=== PATIENT | female | born 1970 | race Caucasian/White ===

== ENCOUNTER → 2016-08-10 | Outpatient (CLI) | payer OTHER ==
--- NOTE | 2016-08-11 15:24 | MAM ---
EXAM DESCRIPTION: MAMMO BREAST SCREENING BILATERAL CAD, images were reviewed with CAD technology, R2 computer-aided detection. CLINICAL HISTORY: [facility]. COMPARISON: 2013. FINDINGS: Routine views are obtained. Glandular tissue is near completely fatty involuted. No dominant mass, architectural distortion or clustered microcalcification.. IMPRESSION: Benign exam. BIRAD CATEGORY: 2 BENIGN RECOMMENDATIONS: FOLLOW-UP: Routine screening mammogram in one year. According to the [employer], yearly mammograms are recommended starting at age 40 and continuing as long as a woman is in good health. Any breast change noted on a breast self-exam should be reported promptly to the patient's healthcare provider. Breast MRI is recommended for women with an approximately 20-25% or greater lifetime risk of breast cancer, including women with a strong family history of breast or ovarian cancer and women who have been treated for Hodgkin's disease. Electronically signed by: Cherelle Lehman 08/11/2016 15:23
== END ==
LOC: MAMMO 13:27
PROVIDERS: ATTEND Obstetrics & Gynecology
DX: Z12.31 Encounter for screening mammogram for malignant neoplasm of breast (principal)
CPT/HCPCS: 77052; G0202

== ENCOUNTER → 2017-07-01 | Outpatient (CLI) | payer OTHER | END | disposition home or self-care (01) | LOC: GMAB 10:37 | PROVIDERS: ATTEND Family Medicine | DX: E03.9 Hypothyroidism, unspecified (principal); E34.9 Endocrine disorder, unspecified; Z79.890 Hormone replacement therapy ==

== ENCOUNTER 2017-09-18 11:18 | Emergency (ER) | payer OTHER ==
[2017-09-18 11:28] VITALS: TEMP 98.3
--- NOTE | 2017-09-18 12:18 | RAD ---
Procedure: XR CHEST 2 VIEWS Exam Date: 09/18/2017 11:40 AM STATE EPIDEMIOLOGIST Ordering Provider: Rudolph Pinto Clinical Indication: near syncope Comparison: None Findings: The lungs are clear and well-aerated. No pleural effusion or pneumothorax. Cardiac silhouette is normal in size. Impression: No acute pulmonary process. Electronically signed by: Aleksandra Ch MD 09/18/2017 12:17 PM STATE EPIDEMIOLOGIST
[2017-09-18] MEDS ORDERED: MECLIZINE HCL 12.5 MG TAB PO ONE (13:19)
[2017-09-18 13:29] VITALS: O2SAT 97
--- NOTE | 2017-09-18 13:44 | CT ---
Procedure: CT HEAD WITHOUT IV CONTRAST Exam Date: 09/18/2017 1:18 PM EXCELLENCE CONSULTANT Ordering Provider: Rudolph Pinto Clinical Indication: dizziness with lying back for 48 hours Comparison: None Technique: CT images of the head were obtained without contrast administration. Coronal and sagittal reformats were obtained. This exam was performed according to our departmental dose-optimization program which includes automated exposure control, adjustment of the mA and/or kV according to patient size and/or use of iterative reconstruction technique. Findings: There is no acute cortical infarction, hemorrhage, midline shift, mass effect, or hydrocephalus. The calvaria and skull base are unremarkable. Paranasal sinuses and mastoid air cells are well aerated. Impression: 1. No acute intracranial abnormality. Electronically signed by: Aleksandra Ch MD 09/18/2017 1:43 PM EXCELLENCE CONSULTANT
[2017-09-18 13:58] VITALS: BP 135/79
--- NOTE | 2017-09-18 14:12 | ED.PDOC ---
History of Present Illness - General Chief Complaint: Neuro Symptoms/Deficits Stated Complaint: Dizziness, blurred vision Time Seen by Provider: 09/18/17 11:39 Source: patient Exam Limitations: no limitations - History of Present Illness Initial Comments: the patient is a 46-year-old female presenting to the emergency room secondary to symptoms of dizziness and vertigo that had been intermittent, waxing and waning for the last 24-48 hours. She does have a complicating history of bilateral thoracic outlet syndrome. No history of any strokes. No history of any clots. No exacerbation of her typicalsymptoms. She has not had any vertigo before. No history of any Mnire's or hearing loss or tinnitus. No fevers. No earache. No other neurological changes. 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 Exam today shows no unusual nystagmus. Dizziness is not made worse with looking left or right but is made much worse with lying back flat. there is no exacerbationor new nystagmus with this maneuver either. No headache. No change in blood pressure. The vital signs are negative for any significant change. Timing/Duration: 24 hours Severity: moderate Improving Factors: nothing Worsening Factors: movement Associated Symptoms: denies symptoms, nausea/vomiting Allergies/Adverse Reactions: Allergies Codeine Allergy (Verified 03/19/16 01:47) Hydrocodone Allergy (Verified 03/19/16 01:47) Latex Allergy (Verified 03/19/16 01:47) Meperidine [From Demerol HCl] Allergy (Verified 03/19/16 01:47) Morphine Allergy (Verified 03/19/16 01:47) Home Medications: Ambulatory Orders Ascorbic Acid [Vitamin C] 1,000 mg PO DAILY 09/26/15 Aspirin [Eql Aspirin Low Dose] 81 mg PO DAILY 09/26/15 Cholecalciferol [Vitamin D-3] 2,000 unit PO DAILY 09/26/15 Cyanocobalamin [Vitamin B 12] 250 mcg PO DAILY 09/26/15 Estradiol [Estrace Tab] 1 mg PO BEDTIME 09/26/15 Iodine (Kelp) [Kelp] 0.15 mg PO DAILY 09/26/15 Magnesium [Magnesium 250 mg] 1 tab PO DAILY 09/26/15 Thyroid [Thornton Thyroid] 30 mg PO BID 09/26/15 Vitamin E 100 unit PO DAILY 09/26/15 Lisinopril 10 mg PO DAILY 10/01/15 Carisoprodol [Soma] 350 mg PO Q6H PRN #30 tab 03/19/16 Meclizine HCl [Meclizine 25] 25 mg PO Q6H PRN #30 tab 09/18/17 predniSONE [Prednisone] 20 mg PO DAILY #5 tab 09/18/17 Review of Systems - Review of Systems Constitutional: States: malaise EENTM: States: no symptoms reported Respiratory: States: no symptoms reported Cardiology: States: no symptoms reported Gastrointestinal/Abdominal: States: no symptoms reported Genitourinary: States: no symptoms reported Musculoskeletal: States: no symptoms reported Skin: States: no symptoms reported Neurological: States: other - dizziness and vertigo Endocrine: States: no symptoms reported All other Systems: No Change from Baseline Past Medical History (General) - Patient Medical History Hx Seizures: No Hx Stroke: No Hx Dementia: No Hx Asthma: No Hx of COPD: No Hx Cardiac Disorders: No Hx Congestive Heart Failure: No Hx Pacemaker: No Hx Hypertension: Yes Hx Thyroid Disease: Yes Hx Diabetes: No Hx Gastroesophageal Reflux: No Hx Renal Disease: No Hx Cancer: No Hx of HIV: No Hx Hepatitis C: No Hx MRSA: No Surgical History: appendectomy, tonsillectomy, Hysterectomy, other - Vaccination History Hx Tetanus, Diphtheria Vaccination: No Hx Influenza Vaccination: No Hx Pneumococcal Vaccination: No - Social History Hx Tobacco Use: No Hx Chewing Tobacco Use: No Hx Alcohol Use: Yes - social Hx Substance Use: No Hx Substance Use Treatment: No Hx Depression: No Hx Physical Abuse: No Hx Emotional Abuse: No Hx Suspected Abuse: No - Female History Patient is a Female of Child Bearing Age (10 -59 yrs old): No - hysterectomy Patient : No Family Medical History - Family History Mother Family History: Unknown Living Status: Still Living Hx Cardiac Disease: Yes - [place] x 2 Physical Exam - Physical Exam General Appearance: Alert, Anxious, No apparent distress Eye Exam: right normal, left other - chronic decreased vision out of the left eye Ears, Nose, Throat: hearing grossly normal, normal ENT inspection, normal pharynx Neck: full range of motion, supple Respiratory: lungs clear, normal breath sounds, no respiratory distress, no accessory muscle use Cardiovascular/Chest: normal peripheral pulses, regular rate, rhythm, no edema Peripheral Pulses: radial,right: 2+, radial,left: 2+, dorsalis pedis,right: 2+, dorsalis pedis,left: 2+ Gastrointestinal/Abdominal: non tender, soft Rectal Exam: deferred Back Exam: no CVA tenderness, no vertebral tenderness Extremity: normal range of motion, non-tender, normal inspection, no pedal edema , normal capillary refill Neurologic: shield operator II-XII nml as tested, no motor/sensory deficits, alert, normal mood/affect, oriented x 3 Skin Exam: normal color Comments: Vital Signs - 24 hr 09/18/17 09/18/17 09/18/17 11:27 12:28 12:30 Temperature 98.3 F Pulse Rate [ 69 82 68 Left Radial] Respiratory 20 20 20 Rate Blood Pressure 165/92 163/97 172/64 [Left Arm] O2 Sat by Pulse 96 100 99 Oximetry 09/18/17 09/18/17 09/18/17 12:32 12:53 13:52 Temperature Pulse Rate [ 78 50 L 79 Left Radial] Respiratory 20 20 18 Rate Blood Pressure 167/102 160/96 135/79 [Left Arm] O2 Sat by Pulse 98 97 97 Oximetry Progress - Progress Progress: 09/18/17 14:13 The patient is a 46-year-old female presenting to the emergency room with new onset dizziness and vertigo. This appears to be a case of atypical subjective benign positional paroxysmal vertigo. At this point in time I cannot relate any of her symptoms to her thoracic outlet syndrome. No evidence of any thrombosis. D-dimer is negative. BNP is within normal limits. Physical exam shows no acute changes otherwise. The patient did respond to a particle repositioning maneuver starting with the patient lying back and looking to the left at first. She has been instructed on how to do this with the help of her if the problem recurs. The patient will be written for prednisone daily for 5 days at 20 mg. She will also be written for meclizine for when necessary use. She needs to keep herself well-hydrated. If symptoms are persisting or worsening over the next 3 or 4 days then her primary care doctor may need to refer her to an manager research development for further evaluation. eR warnings were given for any significant change in her symptoms. - Results/Orders Results/Orders: chest x-ray shows no acute abnormality. Head CT shows no significant pathology. EKG shows normal sinus rhythm at a rate of 64 bpm. Normal axis. No acute ST segment changes concerning for ischemia. Normal R-wave progression. Normal QT interval. 09/18/17 11:40 Telemetry .CONTINUOUS 09/18/17 11:45 EKG STAT EKG STAT 09/18/17 12:27 Vital Signs-Tilt PRN Laboratory Results - last 24 hr 09/18/17 09/18/17 09/18/17 11:58 11:58 11:58 WBC 7.5 RBC 5.36 Hgb 13.7 Hct 41.7 MCV 77.9 L MCH 25.5 L MCHC 32.7 L RDW 14.0 Plt Count 206 MPV 9.5 Absolute Neuts (auto) 5.10 Absolute Lymphs (auto) 1.70 Absolute Monos (auto) 0.40 Absolute Eos (auto) 0.10 Absolute Basos (auto) 0.10 Neutrophils % 68.1 Lymphocytes % 23.3 Monocytes % 5.8 Eosinophils % 1.9 Basophils % 0.9 D-Dimer, Quantitative 230 Sodium 138 Potassium 3.8 Chloride 106 Carbon Dioxide 25 Anion Gap 10.8 L BUN 14 Creatinine 0.64 BUN/Creatinine Ratio 21.9 H Random Glucose 90 Serum Osmolality 275.7 Calcium 9.1 Magnesium 1.8 Total Bilirubin 0.4 AST 14 ALT 17 Alkaline Phosphatase 72 Creatine Kinase 41 CK-MB (CK-2) 0.7 CK-MB (CK-2) % Not Reportable Troponin I < 0.02 B-Natriuretic Peptide 64.1 Serum Total Protein 6.8 Albumin 3.6 Globulin 3.2 Albumin/Globulin Ratio 1.1 TSH 1.60 Urine Color Urine Appearance Urine pH Ur Specific [place] Urine Protein Urine Glucose (UA) Urine Ketones Urine Blood Urine Nitrite Urine Bilirubin Urine Urobilinogen Ur Leukocyte Esterase Urine RBC Urine WBC Ur Epithelial Cells Urine Bacteria 09/18/17 11:59 WBC RBC Hgb Hct MCV MCH MCHC RDW Plt Count MPV Absolute Neuts (auto) Absolute Lymphs (auto) Absolute Monos (auto) Absolute Eos (auto) Absolute Basos (auto) Neutrophils % Lymphocytes % Monocytes % Eosinophils % Basophils % D-Dimer, Quantitative Sodium Potassium Chloride Carbon Dioxide Anion Gap BUN Creatinine BUN/Creatinine Ratio Random Glucose Serum Osmolality Calcium Magnesium Total Bilirubin AST ALT Alkaline Phosphatase Creatine Kinase CK-MB (CK-2) CK-MB (CK-2) % Troponin I B-Natriuretic Peptide Serum Total Protein Albumin Globulin Albumin/Globulin Ratio TSH Urine Color Yellow Urine Appearance Clear Urine pH 6.5 Ur Specific [place] 1.025 Urine Protein Negative Urine Glucose (UA) Negative Urine Ketones Negative Urine Blood Negative Urine Nitrite Negative Urine Bilirubin Negative Urine Urobilinogen 0.2 Ur Leukocyte Esterase Negative Urine RBC 0 Urine WBC 0 Ur Epithelial Cells 0 Urine Bacteria 0 Departure - Departure Clinical Impression: BPPV (benign paroxysmal positional vertigo) Qualifiers: Laterality: unspecified laterality Qualified Code(s): H81.10 - Benign paroxysmal vertigo, unspecified ear Disposition: Discharge to Home or Self Care Condition: Fair Departure Forms: ED Discharge - Pt. Copy, Patient Portal Self Enrollment Instructions: Benign Paroxysmal Positional Vertigo Diet: regular diet Activity: increase activity as tolerated Referrals: Jaylon Fan MD [Primary Care Provider] - 1-2 Weeks Prescriptions: Meclizine HCl [Meclizine 25] 25 mg PO Q6H PRN #30 tab PRN Reason: Dizziness predniSONE [Prednisone] 20 mg PO DAILY #5 tab Home Medications: Ambulatory Orders Ascorbic Acid [Vitamin C] 1,000 mg PO DAILY 09/26/15 Aspirin [Eql Aspirin Low Dose] 81 mg PO DAILY 09/26/15 Cholecalciferol [Vitamin D-3] 2,000 unit PO DAILY 09/26/15 Cyanocobalamin [Vitamin B 12] 250 mcg PO DAILY 09/26/15 Estradiol [Estrace Tab] 1 mg PO BEDTIME 09/26/15 Iodine (Kelp) [Kelp] 0.15 mg PO DAILY 09/26/15 Magnesium [Magnesium 250 mg] 1 tab PO DAILY 09/26/15 Thyroid [Thornton Thyroid] 30 mg PO BID 09/26/15 Vitamin E 100 unit PO DAILY 09/26/15 Lisinopril 10 mg PO DAILY 10/01/15 Carisoprodol [Soma] 350 mg PO Q6H PRN #30 tab 03/19/16 Meclizine HCl [Meclizine 25] 25 mg PO Q6H PRN #30 tab 09/18/17 predniSONE [Prednisone] 20 mg PO DAILY #5 tab 09/18/17 Additional Instructions: The patient is a 46-year-old female presenting to the emergency room with new onset dizziness and vertigo. This appears to be a case of atypical subjective benign positional paroxysmal vertigo. At this point in time I cannot relate any of her symptoms to her thoracic outlet syndrome. No evidence of any thrombosis. D-dimer is negative. BNP is within normal limits. Physical exam shows no acute changes otherwise. The patient did respond to a particle repositioning maneuver starting with the patient lying back and looking to the left at first. She has been instructed on how to do this with the help of her if the problem recurs. The patient will be written for prednisone daily for 5 days at 20 mg. She will also be written for meclizine for when necessary use. She needs to keep herself well-hydrated. If symptoms are persisting or worsening over the next 3 or 4 days then her primary care doctor may need to refer her to an manager research development for further evaluation. eR warnings were given for any significant change in her symptoms.
== END 2017-09-18 14:30 | disposition home or self-care (01) ==
LOC: ER 11:18
DX: H81.10 Benign paroxysmal vertigo, unspecified ear (principal); I10 Essential (primary) hypertension; E07.9 Disorder of thyroid, unspecified; Z79.82 Long term (current) use of aspirin; Z91.040 Latex allergy status

== ENCOUNTER → 2017-11-29 | Outpatient (CLI) | payer OTHER ==
--- NOTE | 2017-11-30 10:14 | US ---
EXAM DESCRIPTION: Venous,Lower Extremity LT CLINICAL HISTORY: RULE OUT DVT left leg pain and swelling COMPARISON: None. TECHNIQUE: 2D grayscale and color venous duplex Doppler evaluation of the lower extremity are obtained from groin to calf. FINDINGS: There is normal flow, augmentation to flow, and compressibility of the deep venous vasculature of the left lower extremity with no ultrasound evidence of deep venous thrombosis. IMPRESSION: No ultrasound evidence of deep venous thrombosis . Electronically signed by: Mat Sierra MD 11/30/2017 10:13 AM CDT
== END ==
LOC: GMAB 15:47
PROVIDERS: ATTEND Family Medicine
DX: M79.662 Pain in left lower leg (principal); L03.116 Cellulitis of left lower limb

== ENCOUNTER → 2017-12-02 | Outpatient (CLI) | payer OTHER | LOC: LAB.O 10:26 | PROVIDERS: ATTEND Family Medicine | DX: A46 Erysipelas (principal) ==

== ENCOUNTER → 2017-12-31 | Outpatient (CLI) | payer OTHER | LOC: GMAB 11:39 | PROVIDERS: ATTEND Family Medicine | DX: E03.9 Hypothyroidism, unspecified (principal); E34.9 Endocrine disorder, unspecified; Z79.890 Hormone replacement therapy ==

== ENCOUNTER → 2018-03-18 | Outpatient (CLI) | payer OTHER ==
--- NOTE | 2018-03-18 12:38 | US ---
EXAM DESCRIPTION: Venous,Lower Extremity LT CLINICAL HISTORY: PAIN IN LEFT LOWER LEG COMPARISON: Previous study November 29, 2017 left lower extremity venous Doppler sonogram. TECHNIQUE: Left lower extremity venous duplex FINDINGS: Doppler evaluation of the left lower extremity deep veins was performed. Normal color flow is seen in the common femoral, superficial femoral, profunda femoral and greater saphenous veins. Normal flow is seen in the popliteal vein and veins below the knee in the calf. Normal venous compressibility and flow augmentation. IMPRESSION: Negative for evidence of deep venous thrombosis on left lower extremity venous Doppler sonogram. Electronically signed by: Osvaldo Chamberlain MD 03/18/2018 12:37 PM CDT
== END ==
LOC: US 10:18
PROVIDERS: ATTEND Family Medicine
DX: A46 Erysipelas (principal); M79.662 Pain in left lower leg

== ENCOUNTER → 2018-03-25 | Outpatient (CLI) | payer OTHER | LOC: LAB.O 07:10 | PROVIDERS: ATTEND Internal Medicine | DX: E03.9 Hypothyroidism, unspecified (principal) ==

== ENCOUNTER → 2018-07-14 | Outpatient (CLI) | payer OTHER | LOC: LAB.O 09:40 | PROVIDERS: ATTEND Surgery | DX: E56.9 Vitamin deficiency, unspecified (principal); R12 Heartburn; R53.81 Other malaise; R53.83 Other fatigue; R06.02 Shortness of breath; R60.9 Edema, unspecified; F32.9 Major depressive disorder, single episode, unspecified; R13.10 Dysphagia, unspecified; K64.9 Unspecified hemorrhoids; I10 Essential (primary) hypertension; E03.9 Hypothyroidism, unspecified; K58.0 Irritable bowel syndrome with diarrhea; M25.569 Pain in unspecified knee; G43.909 Migraine, unspecified, not intractable, without status migrainosus; G47.33 Obstructive sleep apnea (adult) (pediatric); R32 Unspecified urinary incontinence; F41.1 Generalized anxiety disorder; M54.9 Dorsalgia, unspecified; G47.00 Insomnia, unspecified; M25.50 Pain in unspecified joint; N92.6 Irregular menstruation, unspecified; G47.9 Sleep disorder, unspecified ==

== ENCOUNTER → 2018-08-29 | Outpatient (CLI) | payer OTHER | LOC: LAB.O 08:30 | PROVIDERS: ATTEND Surgery | DX: E56.9 Vitamin deficiency, unspecified (principal); R12 Heartburn; R53.81 Other malaise; R53.83 Other fatigue; R06.02 Shortness of breath; R06.9 Unspecified abnormalities of breathing ==

== ENCOUNTER → 2018-09-07 | Outpatient (CLI) | payer OTHER ==
--- NOTE | 2018-09-07 18:05 | CT ---
EXAM DESCRIPTION: Abdomen/Pelvis w/Contrast CLINICAL HISTORY: 47 years Female LUQ PAIN COMPARISON: None. TECHNIQUE: Contiguous axial images obtained through the abdomen and pelvis without IV contrast. Reformatted images obtained. This exam was performed according to our department optimization program which includes automated exposure control, adjustment of the mA and/or kv according to patient size and/or use of iterative reconstruction technique. FINDINGS: The lung bases are clear. The liver appears unremarkable. Spleen is mildly enlarged. Pancreas is unremarkable. There are postsurgical changes along the stomach which could reflect gastric sleeve. No adrenal masses. The kidneys appear unremarkable. No hydronephrosis or definite ureteral calculi. The gallbladder is visualized. No aneurysmal dilatation of the aorta. No bowel obstruction. The appendix appears likely surgically absent with clips adjacent to the cecum. Nonspecific right lower quadrant mesenteric lymph nodes are present. No free pelvic fluid. IMPRESSION: Mildly prominent spleen Nonspecific mesenteric and right lower quadrant lymph nodes Electronically signed by: Radha Luque MD 09/07/2018 6:02 PM X RAY TECHNOLOGIST
== END ==
LOC: LAB.O 15:38
PROVIDERS: ATTEND Nurse Practitioner Family
DX: R10.9 Unspecified abdominal pain (principal)

== ENCOUNTER → 2019-03-17 | Outpatient (CLI) | payer OTHER | LOC: MRI 07:00 | PROVIDERS: ATTEND Family Medicine | DX: M65.851 Other synovitis and tenosynovitis, right thigh (principal); M25.851 Other specified joint disorders, right hip; M12.88 Other specific arthropathies, not elsewhere classified, other specified site; M51.27 Other intervertebral disc displacement, lumbosacral region; M51.36 Other intervertebral disc degeneration, lumbar region ==

== ENCOUNTER → 2019-03-31 | Outpatient (CLI) | payer OTHER ==
--- NOTE | 2019-04-03 09:49 | RAD ---
EXAM DESCRIPTION: Pelvis CLINICAL HISTORY: 48 years Female, PAIN IN RT HIP COMPARISON: March 17, 2019 Findings: Partially visualized lower lumbar spondylosis. Bilateral sacroiliac joint osteophytosis. No acute fracture or dislocation identified. Surgical clips overlie the right pelvis. Tiny bilateral acetabular osteophytes. Soft tissues are otherwise unremarkable. IMPRESSION: No evidence of acute process. Electronically signed by: Sylvester Marina MD 04/03/2019 9:47 AM CDT
== END ==
LOC: RAD 16:54
PROVIDERS: ATTEND Orthopaedic Surgery
DX: M25.551 Pain in right hip (principal)

== ENCOUNTER → 2019-08-20 | Outpatient (CLI) | payer OTHER | LOC: LAB.NP 17:48 | PROVIDERS: ATTEND Nurse Practitioner Family | DX: J02.9 Acute pharyngitis, unspecified (principal) ==

== ENCOUNTER → 2020-02-28 | Outpatient (CLI) | payer OTHER | LOC: GMAE 17:19 | PROVIDERS: ATTEND Family Medicine | DX: D51.9 Vitamin B12 deficiency anemia, unspecified (principal); R23.3 Spontaneous ecchymoses ==

== ENCOUNTER → 2020-03-04 | Outpatient (CLI) | payer OTHER ==
--- NOTE | 2020-03-05 09:00 | MRI ---
EXAM DESCRIPTION: Brain w/o Contrast: MRI. CLINICAL HISTORY: DIZZINESS COMPARISON: CT scan of the head September 2017. TECHNIQUE: Multiplanar, high-field MRI unit, multiple diffusion sequences, multiple conventional sequences without contrast. FINDINGS: Normal FLAIR and T2-weighted signal in the periventricular white matter and sub-cortical white matter normal signal in the bilateral basal ganglia. Normal signal in the brainstem and cerebellar hemispheres. No hemorrhage, no cerebral edema, no mass-effect. Concordance of the diffusion and non-diffusion sequences with no diffusion restriction. Cortical sulci, ventricles, and other CSF spaces, and the subdural spaces are normally configured for patients age. No effacement or displacement. No midline shift. No extra-axial hemorrhage or fluid collection. Normal flow signal void in the major vessels of the [place], and the venous sinuses. IACs are symmetric bilaterally. Normal signal in the bilateral mastoid air cells. No mass effect in the bilateral cerebellopontine angles. Pituitary gland occupies only the base of the sella. Fluid signal in the bases of the bilateral optic nerves extending posteriorly from the optic globes. Base of the cerebellar tonsils is above the foramen magnum. Minimal mucoperiosteal thickening in the ethmoid sinuses. The bony calvarium is intact. IMPRESSION: 1. Small pituitary gland with mostly CSF in the sella. Fluid in the optic nerve sheaths bilaterally in the orbits, extending posteriorly from the optic globes. Large patient body habitus. These findings can be associated with pseudotumor cerebri or idiopathic intracranial hypertension. Is there history of headaches? Papilledema with ophthalmologic examination? 2. Otherwise unremarkable noncontrast brain MRI scan with no intra-axial hemorrhage, mass effect, or cerebral edema. No extra-axial hemorrhage or fluid collection. Normal noncontrast MRI diffusion scan with no evidence of significant ischemia, or subacute or acute infarction. 3. Minimal chronic paranasal sinusitis. Electronically signed by: Miles Alcocer MD 03/05/2020 8:58 AM CDT
== END ==
LOC: MRI 12:53
PROVIDERS: ATTEND Family Medicine
DX: H47.10 Unspecified papilledema (principal); E23.7 Disorder of pituitary gland, unspecified; J32.9 Chronic sinusitis, unspecified; R42 Dizziness and giddiness